=== PATIENT | male | born 1960 | race Caucasian/White ===

== ENCOUNTER → 2018-12-05 | Outpatient (CLI) | payer OTHER ==
--- NOTE | 2018-12-05 15:55 | Diagnostic Imaging Report ---
PROCEDURE: CT head without contrast. TECHNIQUE: Multiple contiguous axial images were obtained through the brain without the use of intravenous contrast. Auto Exposure Controls were utilized during the CT exam to meet ALARA standards for radiation dose reduction. INDICATION: Intractable headache. COMPARISON: None. FINDINGS: No intracranial hemorrhage, mass effect, hydrocephalus or extra-axial fluid collections. No CT evidence of a territorial infarction. The osseous structures are intact. The visualized paranasal sinuses and mastoids are clear. IMPRESSION: No acute intracranial CT findings. Dictated by: Dictated on workstation # [id number]
== END ==
LOC: RAD 15:37
PROVIDERS: ATTEND Family Medicine
DX: R51 Headache (principal)
CPT/HCPCS: 70450

== ENCOUNTER 2020-12-02 15:00 | Emergency (ER) | payer BC ==
[~2020-12-02] VITALS: Ht 170.1 cm; Wt 83.0 kg
--- NOTE | 2020-12-02 15:27 | ED Upper Extremity ---
General Chief Complaint: Laceration Stated Complaint: R HAND LACERATION Nursing Triage Note: RIGHT WRIST LACERATION, WAS CUTTING BAGS MICHAEL STABBED SELF WITH KNIFE. Source: patient Exam Limitations: no limitations History of Present Illness Date Seen by Provider: Dec 02, 2020 Time Seen by Provider: 15:22 Initial Comments To ER with reports of laceration to the right wrist. He was opening feed sacks with a pocket knife when the knife slipped. Onset: just prior to arrival Severity: moderate Pain/Injury Location: right wrist Method of Injury: direct blow Modifying Factors: Worse With Movement Allergies and Home Medications Allergies Coded Allergies: bee venom (honey bee) (Verified Allergy, 11/17/12) Home Medications Cephalexin 500 Mg Tablet, 500 MG PO TID Prescribed by: COREY DAWSON on 12/02/20 1528 Patient Home Medication List Home Medication List Reviewed: Yes Review of Systems Constitutional: see HPI EENTM: see HPI Respiratory: no symptoms reported Cardiovascular: no symptoms reported Genitourinary: no symptoms reported Musculoskeletal: see HPI Skin: no symptoms reported, change in hair/nails Past Wbuxbxy-Kpajbw-Fvlzgt Hx Patient Social History Tobacco Use?: No Use of E-Cig and/or Vaping dev: No Substance use?: No Alcohol Use?: No Pt feels they are or have been: No Immunizations Up To Date Tetanus Booster (TDap): More than 5yrs Physical Exam Vital Signs Vital Signs - First Documented 12/02/20 15:00 Temp 36.8 Pulse 59 Resp 18 B/P (MAP) 112/85 (94) Pulse Ox 99 O2 Delivery Room Air Capillary Refill : Less Than 3 Seconds Height, Weight, BMI Height: '" Weight: lbs. oz. kg; 28.00 BMI Method:Stated General Appearance: WD/WN, no apparent distress Respiratory: no respiratory distress, no accessory muscle use Shoulder: normal inspection, non-tender Elbow/Forearm: normal inspection, non-tender Wrist: Yes pain (There is a 1 cm laceration over the volar aspect of the left wrist ulnar side. This is briskly bleeding even with proximal pressure over the ulnar artery. However, with pressure applied distal to the wound over the superficial veins on the volar surface of the wrist all bleeding stops. When occluding both the radial and ulnar arteries and then releasing the radial artery there is delayed capillary refill of the hand as compared to the left. Perhaps there is some ulnar arterial injury here. However there is no hematoma or swelling at the wrist. When the radial artery is released there is immediate capillary refill of all fingers. He denies any numbness or tingling sensation of any of the fingers. He has full flexion abilities of each of the fingers and the hand.), Yes soft tissue tenderness Hand: normal inspection, non-tender Neurologic/Psychiatric: alert, normal mood/affect, oriented x 3 Skin: normal color, warm/dry Progress/Results/Core Measures Results/Orders Vital Signs/I&O 12/02/20 15:00 Temp 36.8 Pulse 59 Resp 18 B/P (MAP) 112/85 (94) Pulse Ox 99 O2 Delivery Room Air Blood Pressure Mean: 94 Departure Communication (Admissions) Procedure note the laceration was anesthetized with 1% lidocaine without epinephrine then scrubbed with chlorhexidine/saline solution and irrigated with the same. Skin was then sutured with 3 simple interrupted sutures size 4-0 Prolene. There was no residual bleeding or hematoma formation. Discussed with Dr. Zimmerman, even if there is an injury to the ulnar artery given that it is so distal and with excellent collateral flow via the radial artery there is no hematoma development and there is no need for intervention. Impression Primary Impression: Wrist laceration Disposition: 01 HOME, SELF-CARE Condition: Stable Departure-Patient Inst. Decision time for Depature: 15:25 Referrals: KRISTIAN NARANJO MD (PCP/Family) Primary Care Physician Patient Instructions: Laceration Repair With Stitches ED Add. Discharge Instructions: 1. Follow-up with Dr. Naranjo in 2 to 3 weeks for recheck. It is most likely that this represents a laceration of the superficial veins of the wrist because pressure applied distal to the wound (instead of proximal) stopped the bleeding. You can shower letting water run over this starting this evening. However do not soak this in water such as a bathtub hot tub or swimming pool. Return to ER to have the stitches removed or have them removed by a family member in healthcare in about 7 to 10 days. All discharge instructions reviewed with patient and/or family. Voiced understanding. Scripts Cephalexin (Cephalexin) 500 Mg Tablet 500 MG PO TID, #15 TAB Prov: COREY DAWSON APRN 12/02/20 COREY DAWSON APRN Dec 02, 2020 15:27
[2020-12-02] MEDS ORDERED: CEPH500T PO (15:28)
[2020-12-02] MEDS ORDERED: TETANUS,DIPTH,PERTUSS P/F (BOOSTRIX) 0.5 ML VIAL IM ONE (15:45)
[2020-12-02 15:46] VITALS: BP 127/86
== END 2020-12-02 15:47 | disposition home or self-care (01) ==
LOC: EDUNIT# 15:00 → ER 15:02
DX: S61.511A Laceration without foreign body of right wrist, initial encounter (principal); Z23 Encounter for immunization; W26.0XXA Contact with knife, initial encounter
CPT/HCPCS: 12041; 90715